=== PATIENT | female | born 1990 | race Caucasian/White ===

== ENCOUNTER 2016-09-02 06:28 | Day surgery (SDC) | payer BC ==
[~2016-09-02 06:28] MED LIST: Sodium Chloride 0.9% 10 ML Syringe FLUSH PRN; Sodium Chloride 0.9% 2.5 ML Syringe FLUSH PRN
[2016-09-02] MEDS ORDERED: Ondansetron 4 MG/2 ML SDV ONE (07:13)
[2016-09-02] MEDS ORDERED: fentaNYL 100 MCG/2 ML SDV ONE (07:13)
[2016-09-02] MEDS ORDERED: Propofol 200 MG/20 ML SDV ONE ×2 (07:13→08:03)
[2016-09-02] MEDS ORDERED: Midazolam 1 MG/ML 2 ML SDV ONE (07:14)
[2016-09-02] MEDS ORDERED: Lidocaine 1% with EPINEPHrine 1:100,000 20 ML MDV ONE (07:23)
--- NOTE | 2016-09-02 07:26 | PCM.PREANE ---
Preanesthetic Assessment - Anesthesia/Transfusion/Family Hx Anesthesia History: Prior Anesthesia Without Reaction Family History of Anesthesia Reaction: No Transfusion History: No Prior Transfusion(s) Intubation History: Unknown - Review of Systems Pulmonary: No Symptoms Cardiovascular: No Symptoms Gastrointestinal: No symptoms Neurological: No Symptoms Other: Reports: None, Depression, Anxiety - Physical Assessment O2 Sat by Pulse Oximetry: 100 Respiratory Rate: 16 Vital Signs: Last Vital Signs Temp 98.4 F 09/02/16 06:49 Pulse 62 09/02/16 06:49 Resp 16 09/02/16 06:49 BP 100/62 09/02/16 06:49 Pulse Ox 100 09/02/16 06:49 Height: 5 ft 3 in Weight: 111 lb ASA Class: 2 Mental Status: Alert & Oriented x3 Airway Class: Mallampati = 1 Dentition: Reports: Normal Dentition Thyro-Mental Finger Breadths: 3 Mouth Opening Finger Breadths: 3 ROM/Head Extension: Full Lungs: Clear to auscultation, Normal respiratory effort Cardiovascular: Regular Rate, Regular Rhythm, No Murmurs - Lab Values: Laboratory Last Values WBC 14.08 K/uL (4.0-11.0) H 09/02/16 06:51 RBC 4.56 M/uL (4.30-5.90) 09/02/16 06:51 Hgb 13.3 g/dL (12.0-16.0) 09/02/16 06:51 Hct 41.6 % (36.0-46.0) 09/02/16 06:51 MCV 91.2 fL (80.0-98.0) 09/02/16 06:51 MCH 29.2 pg (27.0-32.0) 09/02/16 06:51 MCHC 32.0 g/dL (31.0-37.0) 09/02/16 06:51 RDW Std Deviation 44.1 fl (28.0-62.0) 09/02/16 06:51 RDW Coeff of Clary 13 % (11.0-15.0) 09/02/16 06:51 Plt Count 227 K/uL (150-400) 09/02/16 06:51 MPV 11.70 fL (7.40-12.00) 09/02/16 06:51 Nucleated RBC % 0.0 /100WBC 09/02/16 06:51 Nucleated RBCs # 0 K/uL 09/02/16 06:51 HCG, Qual NEGATIVE (NEG) 09/02/16 06:51 - Allergies Allergies/Adverse Reactions: Allergies Allergy/AdvReac Type Severity Reaction Status Date / Time No Known Allergies Allergy Verified 08/27/16 14:57 - Blood Blood Available: No Product(s) Available: None - Anesthesia Plan Pre-Op Medication Ordered: None - Acknowledgements Anesthesia Type Planned: General Anesthesia (mask vs LMA; very anxious) Pt an Appropriate Candidate for the Planned Anesthesia: Yes Alternatives and Risks of Anesthesia Discussed w Pt/Guardian: Yes Pt/Guardian Understands and Agrees with Anesthesia Plan: Yes PreAnesthesia Questionnaire Psychiatric History: Reports: Anxiety, Depression - Past Surgical History Head Surgeries/Procedures: Reports: None HEENT Surgical History: Reports: Oral surgery Other HEENT Surgeries/Procedures: wisdom teeth extraction - SUBSTANCE USE Smoking Status *Q: Never Smoker Recreational Drug Use History: No - HOME MEDS Home Medications: Home Meds Naproxen Sodium [Aleve] 1 tab PO ASDIRECTED PRN 08/27/16 [History] Sertraline HCl [Zoloft] 100 mg PO DAILY 08/27/16 [History] - CURRENT (IN HOUSE) MEDS Current Meds: Current Medications Sodium Chloride (Saline Flush) 10 ml FLUSH ASDIRECTED PRN PRN Reason: Keep Vein Open Sodium Chloride (Saline Flush) 2.5 ml FLUSH ASDIRECTED PRN PRN Reason: Keep Vein Open Discontinued Medications Fentanyl (Sublimaze) Confirm Administered Dose 100 mcg .ROUTE .STK-MED ONE Stop: 09/02/16 07:14 Midazolam HCl (Versed 1 Mg/Ml) Confirm Administered Dose 2 mg .ROUTE .STK-MED ONE Stop: 09/02/16 07:15 Ondansetron HCl (Zofran) Confirm Administered Dose 4 mg .ROUTE .STK-MED ONE Stop: 09/02/16 07:14 Propofol (Diprivan 20 Ml) Confirm Administered Dose 200 mg .ROUTE .STK-MED ONE Stop: 09/02/16 07:14 Preanesthetic Assessment - ANESTHESIA/TRANSFUSION/FAMILY HX Family History of Anesthesia Reaction: No - PHYSICAL ASSESSMENT O2 Sat by Pulse Oximetry: 100 RR: 16 Vital Signs: Last Vital Signs Temp 98.4 F 09/02/16 06:49 Pulse 62 09/02/16 06:49 Resp 16 09/02/16 06:49 BP 100/62 09/02/16 06:49 Pulse Ox 100 09/02/16 06:49 Height: 5 ft 3 in Weight: 111 lb - LAB Values: Laboratory Last Values WBC 14.08 K/uL (4.0-11.0) H 09/02/16 06:51 RBC 4.56 M/uL (4.30-5.90) 09/02/16 06:51 Hgb 13.3 g/dL (12.0-16.0) 09/02/16 06:51 Hct 41.6 % (36.0-46.0) 09/02/16 06:51 MCV 91.2 fL (80.0-98.0) 09/02/16 06:51 MCH 29.2 pg (27.0-32.0) 09/02/16 06:51 MCHC 32.0 g/dL (31.0-37.0) 09/02/16 06:51 RDW Std Deviation 44.1 fl (28.0-62.0) 09/02/16 06:51 RDW Coeff of Clary 13 % (11.0-15.0) 09/02/16 06:51 Plt Count 227 K/uL (150-400) 09/02/16 06:51 MPV 11.70 fL (7.40-12.00) 09/02/16 06:51 Nucleated RBC % 0.0 /100WBC 09/02/16 06:51 Nucleated RBCs # 0 K/uL 09/02/16 06:51 HCG, Qual NEGATIVE (NEG) 09/02/16 06:51 - ALLERGIES Allergies/Adverse Reactions: Allergies Allergy/AdvReac Type Severity Reaction Status Date / Time No Known Allergies Allergy Verified 08/27/16 14:57
[2016-09-02] MEDS ORDERED: Ketorolac 30 MG/ML SDV ONE (08:18)
--- NOTE | 2016-09-02 08:30 | PCM.OPNOTE ---
- General Post-Op/Procedure Note Date of Surgery/Procedure: 09/02/16 Operative Procedure(s): LEEP of cervix Pre Op Diagnosis: MANJU II Post-Op Diagnosis: Same Anesthesia Technique: Local, MAC Primary Surgeon: Brittany Narvaez Pathology: Cervix, endocervical hat, ECC Fluid Replacement, Intraop: 1,100 EBL in mLs: 10 Complications: none known Condition: Good Free Text/Narrative:: Dictation [id number]
--- NOTE | 2016-09-02 08:49 | PCM.POSTAN ---
POST ANESTHESIA ASSESSMENT - MENTAL STATUS Mental Status: alert, oriented - RESPIRATORY Respiratory Status: respiratory rate WNL, airway patent, O2 saturation stable - CARDIOVASCULAR CV Status: pulse rate WNL, blood pressure stable - GASTROINTESTINAL GI Status: no symptoms - PAIN Pain Score: 0 - POST OP HYDRATION Hydration Status: adequate & stable
[2016-09-02 08:59] VITALS: BP 119/42
--- NOTE | 2016-09-02 09:09 | PCM48HPAN ---
Post Anesthesia Note - EVALUATION WITHIN 48HRS OF ANESTHETIC Vital Signs in Normal Range: Yes Patient Participated in Evaluation: Yes Respiratory Function Stable: Yes Airway Patent: Yes Cardiovascular Function Stable: Yes Hydration Status Stable: Yes Pain Control Satisfactory: Yes Nausea and Vomiting Control Satisfactory: Yes Mental Status Recovered: Yes - COMMENTS/OBSERVATIONS Free Text/Narrative:: Pt currently denies any pain or nausea. Pt states she is ready to go home. No apparent anesthesia complications.
--- NOTE | 2016-09-02 15:36 | OR ---
SURGEON: Brittany Narvaez M.D. DATE OF PROCEDURE: 09/02/2016 PREOPERATIVE DIAGNOSIS: MANJU-2. POSTOP DIAGNOSIS: MANJU-2. PROCEDURE: LEEP of cervix. ANESTHESIA: IV sedation with local. ESTIMATED BLOOD LOSS: Less than 10 mL. FLUIDS: 1100 mL crystalloid. DISPOSITION: The patient to PACU, stable. PROCEDURE DETAILS: Jessie is a 26-year-old female, who has had recent colposcopy biopsy for abnormal Pap smear, which revealed a MANJU-2. Therefore, we have discussed options with her, and we are opting to proceed with LEEP for further treatment and diagnostic measures. Risks of the procedure have been discussed with her and proper consent obtained. DESCRIPTION OF PROCEDURE: The patient was taken to the operating room, where she underwent IV sedation and was placed in modified dorsal lithotomy position and was prepped and draped in the usual fashion. A time-out was performed. A coated speculum was now introduced into the vagina. Cervix was able to be visualized. The cervix was prepped with Lugol's, and the cervix was locally injected with 1% lidocaine with epinephrine. Please see a total of 10 mL was utilized. Using a 20 x 8 mm endocervical loop, a single pass excision was performed incorporating both the anterior and posterior lip of the cervix. There was a segment of the left side that was not completely excised and then this was further excised with the loop. A 5 mm endocervical hat was now excised followed by endocervical curettings. The wound bed was now cauterized with rollerball, and Monsel's was gently placed. Hemostasis was evident. The patient has tolerated the procedure well overall. Instrument and sponge count was correct. All instruments removed from the vagina. The patient tolerated the procedure well. She will go to PACU in stable condition. Specimens to pathology. ALECIA / TYRELL /[id number]
== END 2016-09-02 09:15 | disposition home or self-care (01) ==
LOC: MW.SDS 06:28
PROVIDERS: ATTEND Obstetrics & Gynecology
DX: N87.1 Moderate cervical dysplasia (principal)
CPT/HCPCS: 36415; 57522; 84703; 85027; 88305; 88307; J1885; J2250; J2405; J3010; 00940; J2704

== ENCOUNTER 2017-04-05 02:55 | Observation (INO) | payer OTHER ==
[2017-04-05] MEDS ORDERED: Sodium Chloride 0.9% 10 ML Syringe FLUSH PRN (04:06)
[2017-04-05] MEDS ORDERED: Sodium Chloride 0.9% 2.5 ML Syringe FLUSH PRN (04:06)
[2017-04-05] MEDS ORDERED: Lactated Ringers 1,000 ML IV SCH (04:15)
[2017-04-05] MEDS: Lactated Ringers 1,000 ML IV SCH ×2 (06:22→23:37)
[2017-04-05] MEDS ORDERED: Ampicillin 2 GM in Sodium Chloride 0.9% 100 ML IV ONE (07:14)
[2017-04-05] MEDS ORDERED: Docusate Sodium 100 MG Cap PO PRN (07:17)
[2017-04-05] MEDS ORDERED: Acetaminophen 325 MG Tab PO PRN (07:17)
[2017-04-05] MEDS ORDERED: hydrOXYzine Pamoate 25 MG Cap PO PRN (07:19)
[2017-04-05 07:31] LABS: CHLORIDE,CL 106 mmol/L (98-110); SODIUM,NA 137 mmol/L (136-146)
[2017-04-05] MEDS: Prenatal Multivitamin and Multimineral with Iron Tab PO SCH (08:28)
--- NOTE | 2017-04-05 11:08 | HP ---
DATE OF : 1990 PRIMARY CARE PHYSICIAN: None PCP CHIEF COMPLAINT: Vaginal bleeding in . HISTORY: This is a 27-year-old female. She is G1, P0. She presents at 27 and 5/7th weeks' gestation with an episode of vaginal bleeding, bright red approximately 4- 5 cm area of a mini pad after she was lifting a large garbage bag into the dumpster at work. She has had uncomplicated care. She does feel tightening, but no ongoing abdominal or back pain. She has noted a decreased appetite and reports stress during the . She reports positive movement. No abnormal discharge or vaginal odor. She has previously had an uncomplicated , but does have a history of LEEP with normal cervical length. PAST MEDICAL HISTORY: Significant for anxiety. PAST SURGICAL HISTORY: Breast augmentation in 2010. LEEP in August of 2016. SOCIAL HISTORY: She denies use of tobacco, alcohol, or street drugs. She is single. She has had no recent intercourse. FAMILY HISTORY: Negative for chronic illness. ALLERGIES: None known. MEDICATIONS: Tylenol as needed. vitamins and calcium. REVIEW OF SYSTEMS: GENERAL: Negative for headache or visual changes. Negative for rash. CARDIAC: Negative for cardiac symptoms. PULMONARY: Negative for pulmonary symptoms. MUSCULOSKELETAL: Negative for musculoskeletal symptoms. GI: Negative for GI symptoms. DERMATOLOGIC: Negative for dermatologic symptoms. : As per HPI. NEUROLOGIC: Negative for neurologic symptoms. PHYSICAL EXAMINATION: VITAL SIGNS: Blood pressure is 100/58, pulse is 84, temperature is 98.6, heart tones 140s with moderate variabilities. Accelerations are present. There are no decelerations. Contractions are every 3-10 minutes and mild. GENERAL: She is alert, oriented, in no acute distress. NECK: Supple without lymphadenopathy or thyromegaly. LUNGS: Clear bilaterally. CV: Regular rate without murmur. ABDOMEN: Soft, gravid, nontender. Appropriate for gestational age. Fundus is nontender. EXTREMITIES: Show trace edema. NEUROLOGIC: CVA is nontender. Sterile speculum exam shows a small amount of dark red mucousy discharge. Vaginal exam is closed, soft, mid position. Ultrasound cervical length is 3.1 cm. FRANCIS is 12.4, estimated weight of 1054 g which is 23rd percentile for gestational age. Abdomen is at the 12th percentile for gestational age. LABORATORY STUDIES: Include hemoglobin 11.1, platelet count of 200,000, white blood cell count of 15.6. She is blood type O positive. Coagulation studies are pending as is a firm Gen-Probe and group B strep culture. fibronectin was not obtained due to vaginal bleeding and vaginal ultrasound. ASSESSMENT AND PLAN: A 27 and 5/7th week intrauterine with contractions after an episode of bleeding. Etiology may be labor versus abruption versus other. Currently, status is reassuring. PLAN: To admit for observation with continuous monitoring. We will review abruption labs. Continue with hydration. Start group B strep prophylaxis with ampicillin after group B strep culture was obtained and begin steroids. If there is any cervical change, if abruption labs appear abnormal or if there is persistent bleeding, we will transfer her to a facility capable of caring for a 27-week . HIREN SANTILLAN /[id number]
[2017-04-05] MEDS: Betamethasone Acetate/Betamethasone Sod Phosphate 30 MG/5 ML MDV IM SCH (12:09)
[2017-04-05] MEDS: Ampicillin 1 GM in Sodium Chloride 0.9% 50 ML IV SCH ×3 (12:11→23:37)
[2017-04-06] MEDS ORDERED: Ampicillin 1 GM AdvVial IV ONE (05:28)
[2017-04-06] MEDS ORDERED: Sodium Chloride 0.9% 50 ML ONE (05:35)
[2017-04-06] MEDS: Ampicillin 1 GM in Sodium Chloride 0.9% 50 ML IV SCH ×2 (05:38→11:51)
[2017-04-06] MEDS: Prenatal Multivitamin and Multimineral with Iron Tab PO SCH (09:20)
[2017-04-06] MEDS: Betamethasone Acetate/Betamethasone Sod Phosphate 30 MG/5 ML MDV IM SCH (12:05)
--- NOTE | 2017-04-07 10:46 | US ---
EXAM DATE: 04/05/17 PATIENT'S AGE: 27 Patient: FREDO DEAN Facility: [place], [place] Site . Site : 1990 Study: US OB Pelvis [id number] 5:18:23 AM Ordering Physician: Brice Soto Final Report: INDICATION: Bleeding. Check placenta and cervical length. TECHNIQUE: Transabdominal and transvaginal OB pelvic ultrasound. COMPARISON: None. FINDINGS: Single living intrauterine in vertex presentation. heart rate is 133 beats per minute. The posterior fundal placenta is otherwise unremarkable in appearance. Amniotic fluid is within normal limits. The clothes cervical length is 3.1 cm. Estimated gestational age is 28 weeks 0 days. Estimated weight is 1054 grams, at the 23rd percentile. Biparietal diameter is 7.1 cm corresponding to 28 weeks 5 days. Head circumference is 26.1 cm corresponding to 28 weeks 3 days. Abdominal circumference is 22.1 cm corresponding to 26 weeks 4 days. Femur length is 5.2 cm corresponding to 28 weeks 0 days. IMPRESSION: Single living intrauterine with estimated age of 28 weeks 0 days. No complicating features evident. Dictated by Fercho Castle MD @ 04/05/2017 5:38:26 AM Dictated by: Fercho Castle MD @ 04/05/2017 05:38:50 (Electronic Signature) Report Signed by Proxy. BERTO
--- NOTE | 2017-04-07 10:47 | US ---
EXAM DATE: 04/05/17 PATIENT'S AGE: 27 Patient: FREDO DEAN Facility: [place], [place] Site . Site : 1990 Study: US OB Pelvis [id number] 5:18:23 AM Ordering Physician: Brice Soto Final Report: INDICATION: Bleeding. Check placenta and cervical length. TECHNIQUE: Transabdominal and transvaginal OB pelvic ultrasound. COMPARISON: None. FINDINGS: Single living intrauterine in vertex presentation. heart rate is 133 beats per minute. The posterior fundal placenta is otherwise unremarkable in appearance. Amniotic fluid is within normal limits. The clothes cervical length is 3.1 cm. Estimated gestational age is 28 weeks 0 days. Estimated weight is 1054 grams, at the 23rd percentile. Biparietal diameter is 7.1 cm corresponding to 28 weeks 5 days. Head circumference is 26.1 cm corresponding to 28 weeks 3 days. Abdominal circumference is 22.1 cm corresponding to 26 weeks 4 days. Femur length is 5.2 cm corresponding to 28 weeks 0 days. IMPRESSION: Single living intrauterine with estimated age of 28 weeks 0 days. No complicating features evident. Dictated by Fercho Castle MD @ 04/05/2017 5:38:26 AM Dictated by: Fercho Castle MD @ 04/05/2017 05:38:50 (Electronic Signature) Report Signed by Proxy. BERTO
== END 2017-04-06 12:35 | disposition home or self-care (01) ==
LOC: MW.OBCHECK 02:55 → MW.OB 02:58 → MW.OBCHECK 03:22 → MW.OB 16:29
PROVIDERS: ADMIT Obstetrics & Gynecology; ATTEND Obstetrics & Gynecology
DX: O46.92 Antepartum hemorrhage, unspecified, second trimester (principal); O99.342 Other mental disorders complicating pregnancy, second trimester; F41.9 Anxiety disorder, unspecified; Z3A.27 27 weeks gestation of pregnancy; Z98.890 Other specified postprocedural states
CPT/HCPCS: 36415; 59025; 76815; 76817; 80053; 81003; 85027; 85384; 85610; 86850; 86900; 86901; 87081; 87480; 87491; 87510; 87591; 87660; A9270; J0290; J7030; J7050; J7120; 96361; 96365; 96366; 96375; 96376; G0378

== ENCOUNTER 2017-05-26 15:33 | Inpatient (IN) | payer BC, OTHER ==
[2017-05-26] MEDS ORDERED: Butorphanol 1 MG/ML SDV IVPUSH ONE (16:33)
[2017-05-26] MEDS: Lactated Ringers 1,000 ML IV ONE (16:44)
[2017-05-26] MEDS ORDERED: Ampicillin 2 GM in Sodium Chloride 0.9% 100 ML IV ONE (17:00)
[2017-05-26] MEDS ORDERED: Sodium Chloride 0.9% 10 ML Syringe FLUSH PRN (18:00)
[2017-05-26] MEDS ORDERED: Methylergonovine 0.2 MG/1 ML Amp IM PRN (18:00)
[2017-05-26] MEDS ORDERED: Terbutaline 1 MG/ML SDV SUBCUT PRN (18:00)
[2017-05-26] MEDS ORDERED: Nalbuphine 10 MG/1 ML Vial IVPUSH PRN (18:00)
[2017-05-26] MEDS ORDERED: Oxytocin/0.9 % Sodium Chloride 30 UNIT/500 ML BAG IV SCH ×2 (18:00)
[2017-05-26] MEDS ORDERED: Sodium Chloride 0.9% 2.5 ML Syringe FLUSH PRN (18:00)
[2017-05-26] MEDS ORDERED: Lactated Ringers 1,000 ML IV SCH (18:00)
[2017-05-26] MEDS ORDERED: Misoprostol 200 MCG Tab PO PRN (18:00)
[2017-05-26] MEDS ORDERED: Lidocaine 1% 50 ML MDV INJECT PRN (18:00)
[2017-05-26] MEDS ORDERED: Water For Irrigation,Sterile 1,000 ML Container IRR PRN (18:00)
[2017-05-26] MEDS ORDERED: Carboprost Tromethamine 250 MCG/1 ML Amp IM PRN (18:00)
[2017-05-26] MEDS: Butorphanol 1 MG/ML SDV IVPUSH PRN ×2 (18:43→20:38)
[2017-05-26] MEDS: Ampicillin 1 GM in Sodium Chloride 0.9% 50 ML IV SCH (20:41)
[2017-05-27] MEDS: Butorphanol 1 MG/ML SDV IVPUSH PRN (00:40)
[2017-05-27] MEDS: Ampicillin 1 GM in Sodium Chloride 0.9% 50 ML IV SCH ×4 (00:50→18:22)
[2017-05-27] MEDS ORDERED: Acetaminophen 500 MG Tab PO ONE (01:09)
[2017-05-27] MEDS ORDERED: Clindamycin Phosphate in D5W 50 ML ONE (01:31)
[2017-05-27] MEDS: Lactated Ringers 1,000 ML IV ONE (01:44)
[2017-05-27] MEDS ORDERED: Clindamycin Phosphate in D5W 50 ML IV ONE (01:45)
[2017-05-27] MEDS ORDERED: fentaNYL 100 MCG/2 ML SDV ONE (02:00)
[2017-05-27] MEDS ORDERED: Ropivacaine 0.2% 2 MG/ML 20 ML SDV ONE (02:01)
[2017-05-27] MEDS ORDERED: Ropivacaine 100 ML ONE (02:01)
--- NOTE | 2017-05-27 02:46 | PCM.PRNOTE ---
- Free Text/Narrative Note: called to place epidural for increasing labor pain. Pt identified and procedure explained. risks reviewed including bleeding, infection, nerve pain, nerve damage, and unsuccessful epidural. pt agrees both verbally and written consent. sitting up, sterile betadine prep times three with sterile drape. 1% lidocaine given SQ at L3. #17 touhy, STEPAN saline, STEPAN easily found at 5 cm. no heme, no paresthesia. catheter placed easily, taped at 12 cm at skin.test dose 3 ml 1.5 % lidocaine with epinephrine 1:200,000. negative reaction. epidural bolus with Patient HOB at 30 degrees, ERICA. bolus of 7 ml 0.2% ropivicaine and 100 mcg fentanyl given in divided doses over 20 minutes. Pt feeling relief with contractions, pain now 0/10. epidural infusion running at 8ml/hr with fentanyl 2 mcg/ml. PCEA bolus available 8 ml/10 min with hourly limit of 30 ml's. Educated on use of PCEA. vital signs remain stable, FHR stable
--- NOTE | 2017-05-27 02:48 | PCM.PREANE ---
Preanesthetic Assessment - Procedure Proposed Procedure: labor epidural - Anesthesia/Transfusion/Family Hx Anesthesia History: Prior Anesthesia Without Reaction (leep) Family History of Anesthesia Reaction: No Transfusion History: No Prior Transfusion(s) Intubation History: Unknown - Review of Systems General: No Symptoms Pulmonary: No Symptoms Cardiovascular: No Symptoms Gastrointestinal: No Symptoms Neurological: No Symptoms Other: Reports: None - Physical Assessment NPO Status Date: 05/27/17 NPO Status Time: 02:47 (clear liquids) Temperature: 38.3 C Vital Signs: Last Vital Signs Temp 38.3 C H 05/27/17 01:40 Pulse Resp BP Pulse Ox Height: 1.6 m Weight: 62.142 kg ASA Class: 2 Mental Status: Alert & Oriented x3 Airway Class: Mallampati = 2 Dentition: Reports: Normal Dentition Thyro-Mental Finger Breadths: 3 Mouth Opening Finger Breadths: 3 ROM/Head Extension: Full Lungs: Clear to Auscultation, Normal Respiratory Effort Cardiovascular: Regular Rate, Regular Rhythm - Lab Values: Laboratory Last Values WBC 29.43 K/uL (4.0-11.0) H 05/26/17 16:42 RBC 4.51 M/uL (4.30-5.90) 05/26/17 16:42 Hgb 13.6 g/dL (12.0-16.0) 05/26/17 16:42 Hct 40.4 % (36.0-46.0) 05/26/17 16:42 MCV 89.6 fL (80.0-98.0) 05/26/17 16:42 MCH 30.2 pg (27.0-32.0) 05/26/17 16:42 MCHC 33.7 g/dL (31.0-37.0) 05/26/17 16:42 RDW Std Deviation 47.7 fl (28.0-62.0) 05/26/17 16:42 RDW Coeff of Clary 15 % (11.0-15.0) 05/26/17 16:42 Plt Count 194 K/uL (150-400) 05/26/17 16:42 MPV 11.40 fL (7.40-12.00) 05/26/17 16:42 Neut % (Auto) Not Reportable 05/26/17 16:42 Lymph % (Auto) Not Reportable 05/26/17 16:42 [place] % (Auto) Not Reportable 05/26/17 16:42 Eos % (Auto) Not Reportable 05/26/17 16:42 Baso % (Auto) Not Reportable 05/26/17 16:42 Neut # (Auto) Not Reportable 05/26/17 16:42 Lymph # (Auto) Not Reportable 05/26/17 16:42 [place] # (Auto) Not Reportable 05/26/17 16:42 Eos # (Auto) Not Reportable 05/26/17 16:42 Baso # (Auto) Not Reportable 05/26/17 16:42 Add Manual Diff YES 05/26/17 16:42 Neutrophils % (Manual) 81 % (48.0-80.0) H 05/26/17 16:42 Band Neutrophils % 13 % 05/26/17 16:42 Lymphocytes % (Manual) 3 % (16.0-40.0) L 05/26/17 16:42 Monocytes % (Manual) 3 % (0.0-15.0) 05/26/17 16:42 Nucleated RBC % 0.0 /100WBC 05/26/17 16:42 Absolute Seg Neuts 23.8 (1.4-5.7) H 05/26/17 16:42 Band Neutrophils # 3.8 05/26/17 16:42 Lymphocytes # (Manual) 0.9 (0.6-2.4) 05/26/17 16:42 Monocytes # (Manual) 0.9 (0.0-0.8) H 05/26/17 16:42 Nucleated RBCs # 0 K/uL 05/26/17 16:42 Membrane Rupture POSITIVE 05/26/17 16:00 Blood Type O POSITIVE 05/26/17 16:42 Antibody Screen NEGATIVE 05/26/17 16:42 - Allergies Allergies/Adverse Reactions: Allergies Allergy/AdvReac Type Severity Reaction Status Date / Time No Known Allergies Allergy Verified 05/26/17 16:07 - Blood Blood Available: Yes Product(s) Available: PRBC - Anesthesia Plan Pre-Op Medication Ordered: None - Acknowledgements Anesthesia Type Planned: Epidural Pt an Appropriate Candidate for the Planned Anesthesia: Yes Alternatives and Risks of Anesthesia Discussed w Pt/Guardian: Yes Pt/Guardian Understands and Agrees with Anesthesia Plan: Yes PreAnesthesia Questionnaire HEENT History: Reports: None Genitourinary History: Reports: None 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: Psychiatric History: Reports: Anxiety, Depression - Past Surgical History HEENT Surgical History: Reports: Oral Surgery Female Surgical History: Reports: Breast Implant, LEEP - SUBSTANCE USE Smoking Status *Q: Never Smoker Recreational Drug Use History: No - HOME MEDS Home Medications: Home Meds PNV95/Ferrous Fumarate/FA [ Tablet] 04/05/17 [History] Acetaminophen [Tylenol Extra Strength] 1,000 mg PO PRN 05/26/17 [History] - CURRENT (IN HOUSE) MEDS Current Meds: Current Medications Butorphanol Tartrate (Stadol) 1 mg IVPUSH Q1H PRN PRN Reason: Pain Last Admin: 05/27/17 00:40 Dose: 1 mg Carboprost Tromethamine (Hemabate Ds) 250 mcg IM ASDIRECTED PRN PRN Reason: Post Hemorrhage Ampicillin Sodium 1 gm/ Sodium (Chloride) 50 mls @ 100 mls/hr IV Q4H HERBIE Last Admin: 05/27/17 00:50 Dose: 100 mls/hr Lactated Ringer's (Ringers, Lactated) 1,000 mls @ 150 mls/hr IV ASDIRECTED HERBIE Last Admin: 05/27/17 02:32 Dose: 150 mls/hr Oxytocin/Sodium Chloride (Oxytocin 30 Unit/500 Ml-Ns) 30 unit in 500 mls @ 999 mls/hr IV TITRATE HERBIE Oxytocin/Sodium Chloride (Oxytocin 30 Unit/500 Ml-Ns) 30 unit in 500 mls @ 2 mls/hr IV TITRATE HERBIE; 2 MUNITS/MIN PRN Reason: Protocol Last Titration: 05/27/17 00:52 Dose: 16 munits/min, 16 mls/hr Gentamicin Sulfate 120 mg/ (Sodium Chloride) 103 mls @ 194.34 mls/hr IV Q8H HERBIE Clindamycin Phosphate (Cleocin In D5w) 50 mls @ 200 mls/hr IV Q6H HERBIE Lidocaine HCl (Xylocaine 1%) 50 ml INJECT .ONCE PRN PRN Reason: Laceration repair Methylergonovine Maleate (Methergine) 0.2 mg IM ASDIRECTED PRN PRN Reason: Post Hemorrhage Misoprostol (Cytotec) 200 mcg PO .ONCE PRN PRN Reason: Post Hemorrhage Nalbuphine HCl (Nubain) 10 mg IVPUSH Q1H PRN PRN Reason: Pain (severe 7-10) Sodium Chloride (Saline Flush) 10 ml FLUSH ASDIRECTED PRN PRN Reason: Keep Vein Open Sodium Chloride (Saline Flush) 2.5 ml FLUSH ASDIRECTED PRN PRN Reason: Keep Vein Open Sterile Water (Sterile Water For Irrigation) 1,000 ml IRR ASDIRECTED PRN PRN Reason: delivery Terbutaline Sulfate (Brethine) 0.25 mg SUBCUT ASDIRECTED PRN PRN Reason: Tacysystole Discontinued Medications Acetaminophen (Tylenol Extra Strength) 1,000 mg PO ONETIME ONE Stop: 05/27/17 01:10 Last Admin: 05/27/17 01:40 Dose: 1,000 mg Butorphanol Tartrate (Stadol) 1 mg IVPUSH ONETIME ONE Stop: 05/26/17 16:34 Last Admin: 05/26/17 16:52 Dose: 1 mg Fentanyl (Sublimaze) Confirm Administered Dose 300 mcg .ROUTE .STK-MED ONE Stop: 05/27/17 02:01 Ampicillin Sodium 2 gm/ Sodium (Chloride) 100 mls @ 200 mls/hr IV ONETIME ONE Stop: 05/26/17 17:29 Last Admin: 05/26/17 16:57 Dose: 200 mls/hr Lactated Ringer's (Ringers, Lactated) 1,000 mls @ 999 mls/hr IV ONETIME ONE Stop: 05/26/17 17:37 Last Admin: 05/27/17 01:44 Dose: 999 mls/hr Clindamycin Phosphate 600 mg/ (Sodium Chloride) 54 mls @ 100 mls/hr IV ONETIME ONE Stop: 05/27/17 01:41 Gentamicin Sulfate 120 mg/ (Sodium Chloride) 103 mls @ 194.34 mls/hr IV ONETIME ONE Stop: 05/27/17 01:40 Last Admin: 05/27/17 01:43 Dose: 194.34 mls/hr Clindamycin Phosphate (Cleocin In D5w) Confirm Administered Dose 50 mls @ as directed .ROUTE .STK-MED ONE Stop: 05/27/17 01:32 Clindamycin Phosphate (Cleocin In D5w) 50 mls @ 200 mls/hr IV ONETIME ONE Stop: 05/27/17 01:59 Last Admin: 05/27/17 01:42 Dose: 200 mls/hr Ropivacaine (Naropin 0.2%) Confirm Administered Dose 100 mls @ as directed .ROUTE .[facility]-MED ONE Stop: 05/27/17 02:02 Clindamycin Phosphate 600 mg/ (Sodium Chloride) 54 mls @ 100 mls/hr IV Q6H HERBIE Ropivacaine (Naropin 0.2%) Confirm Administered Dose 20 ml .ROUTE .ST-MED ONE Stop: 05/27/17 02:02
[2017-05-27] MEDS ORDERED: Acetaminophen 500 MG Tab PO PRN (07:37)
[2017-05-27] MEDS ORDERED: Ibuprofen 400 MG Tab PO PRN (07:37)
[2017-05-27] MEDS ORDERED: Witch Hazel Medicated Pads 40/Jar TOP PRN (07:37)
[2017-05-27] MEDS ORDERED: Docusate Sodium 100 MG Cap PO PRN (07:37)
[2017-05-27] MEDS ORDERED: Bisacodyl 10 MG Supp RECTAL PRN (07:37)
[2017-05-27] MEDS ORDERED: Benzocaine/Menthol 20%-0.5% Spray 78 GM Cannister TOP PRN (07:37)
[2017-05-27] MEDS ORDERED: Lanolin 100% Cream 7 GM Tube TOP PRN (07:37)
[2017-05-27] MEDS: Clindamycin Phosphate in D5W 50 ML IV SCH ×3 (08:43→20:41)
--- NOTE | 2017-05-27 09:06 | PCM48HPAN ---
Post Anesthesia Note - EVALUATION WITHIN 48HRS OF ANESTHETIC Vital Signs in Normal Range: Yes Patient Participated in Evaluation: Yes Respiratory Function Stable: Yes Airway Patent: Yes Cardiovascular Function Stable: Yes Hydration Status Stable: Yes Pain Control Satisfactory: Yes Nausea and Vomiting Control Satisfactory: Yes Mental Status Recovered: Yes
[2017-05-27] MEDS: DEXTROSE 5% IV SCH ×4 (10:43→19:50)
[2017-05-27] MEDS: WATER IV SCH ×4 (10:43→19:50)
[2017-05-27] MEDS: GENTAMICIN IV SCH ×4 (10:43→19:50)
[2017-05-27] MEDS: Acetaminophen 500 MG Tab PO PRN ×2 (10:51→14:58)
[2017-05-27] MEDS: Ibuprofen 800 MG Tab PO PRN (10:51)
--- NOTE | 2017-05-27 12:23 | OR ---
SURGEON: Alejandra Sanches MD DATE OF PROCEDURE: 05/27/2017 PREOPERATIVE DIAGNOSES: 1. Intrauterine at 35 weeks and 1 day. 2. Prolonged premature rupture of membranes. 3. Spontaneous labor 4. Suspected chorioamnionitis. 5. GBS positive. POSTOPERATIVE DIAGNOSES: 1. Intrauterine at 35 weeks and 1 day. 2. Prolonged premature rupture of membranes. 3. Spontaneous labor 4. Suspected chorioamnionitis. 5. GBS positive. 6. Delivered. PROCEDURE: Spontaneous vaginal delivery. ANESTHESIA: Epidural. ESTIMATED BLOOD LOSS: 200 mL. COMPLICATIONS: None. DISPOSITION: Mother and baby in Labor and Delivery room, bonding. FINDINGS: Female infant, weight 2130 g, score 8 and 9 at 1 and 5 minutes respectively. Grossly normal placenta with 3-vessel cord. Intact perineum. BRIEF HISTORY: Jessie is a 27-year-old, G2, P0-0-1-0, who presented on the May at 1530 hours at 35 weeks gestation with a history of leakage of watery whitish fluid for about a week. She said the leakage was enough for her to wear a panty liner and 3 days ago she noticed a greenish tinge to it, which had resolved spontaneously and the fluid continued to be clear, not foul smelling. She presented for evaluation due to worsening abdominal cramps that started about 24 hours ago. She denied vaginal bleeding and reported movement. No fever or chills. On admission, she was confirmed to have ruptured membranes with scanty amount of slightly blood-tinged amniotic fluid noticed with positive Amisure.She was 3 cm dilated, 80%- 90% effaced, at station -2. Irregular contractions. She was afebrile and showed no clinical signs of an infection, but her WBC was elevated at 29 with increased band forms of neutrophils. She had received a course of steroids on a prior admission at 27 weeks for vaginal bleeding and threatened labor. GBS culture collected at that time was positive. She was admitted, received Ampicillin, after discussing with the civil lawyer on -call, Dr. Muller, we made a decision to keep her Hibbs for delivery. Oxytocin was commenced for augmentation of and received epidural for pain management. She had a fever of 100.9 and Gentamicin with Clindamycin was added to the antibiotics regimen. When I reexamined her more than 6 hours after admission on 16 milliunits of oxytocin. She had made change to 4 cm, 90% effaced, station -1, the cervix had scar tissue ring around it (history of LEEP less than 12 months ago) with palpable forebag. AROM was performed, copious amount slightly blood-tinged amniotic fluid. Oxytocin continued to be titrated upwards and she became fully dilated 4 hours later. heart tracing fluctuated between a Category 1 and 2 and having baseline of between 110-120, intermittent episodes of minimal variability, with appropriate response to scalp stimulation. She pushed quite well, brought the baby's head down to a +4 station with four contractions and was set up for delivery modified dorsal lithotomy position. DESCRIPTION OF PROCEDURE: She had a spontaneous vaginal delivery of a live female infant in left occipital anterior position, no nuchal cord, clear amniotic fluid, nonfoul smelling at delivery. Anterior and posterior shoulders and the rest of the baby were delivered without difficulty. Baby was vigorous and cried spontaneously at . The baby was delivered onto the maternal abdomen with the consent of Dr. Muller, civil lawyer on-call. Delayed cord clamping was performed and the cord was subsequently cut by the father of the baby. With delivery of the infant, oxytocin infusion titration was commenced for active management of third stage of labor. Cord blood and gas samples were obtained. Placenta was delivered by controlled cord traction, appeared to be complete and intact with an accessory lobe. Uterine massage was performed. Uterus was found to be well contracted below the umbilicus. Examination of the perineum revealed no laceration. The patient tolerated the procedure well. Sponge, instrument, and needle counts were correct at the end of the delivery. Triple antibiotics will be continued for 24 hours with repeat CBC. ADUMVIV / MODL /[id number] BERTO
[2017-05-28] MEDS: Ampicillin 1 GM in Sodium Chloride 0.9% 50 ML IV SCH ×2 (00:02→05:59)
[2017-05-28] MEDS: Clindamycin Phosphate in D5W 50 ML IV SCH ×2 (03:00→09:03)
[2017-05-28] MEDS: WATER IV SCH ×2 (03:50)
[2017-05-28] MEDS: DEXTROSE 5% IV SCH ×2 (03:50)
[2017-05-28] MEDS: GENTAMICIN IV SCH ×2 (03:50)
[2017-05-28] MEDS: Ibuprofen 800 MG Tab PO PRN ×3 (07:50→20:18)
--- NOTE | 2017-05-28 08:58 | PCM.PNPP ---
- General Info Date of Service: 05/28/17 Functional Status: Reports: Pain Controlled, Tolerating Diet, Ambulating, Urinating - Review of Systems General: Reports: Fatigue. Denies: Fever, Weakness Pulmonary: Denies: Shortness of Breath Cardiovascular: Denies: Chest Pain, Palpitations, Lightheadedness Gastrointestinal: Denies: Nausea, Vomiting Genitourinary: Denies: Flank Pain Psychiatric: Reports: No Symptoms - Patient Data Vital Signs - Most Recent: Last Vital Signs Temp 36.8 C 05/28/17 05:30 Pulse 87 05/28/17 05:30 Resp 16 05/28/17 05:30 BP 92/52 L 05/28/17 05:30 Pulse Ox 97 05/28/17 05:30 Weight - Most Recent: 62.142 kg I&O - Last 24 Hours: Intake & Output 05/27/17 05/28/17 05/28/17 22:59 06:59 14:59 Intake Total 153 203 Balance 153 203 Lab Results - Last 24 Hours: Laboratory Results - last 24 hr 05/28/17 Range/Units 06:54 WBC 25.42 H (4.0-11.0) K/uL RBC 2.78 L (4.30-5.90) M/uL Hgb 8.5 L (12.0-16.0) g/dL Hct 25.0 L (36.0-46.0) % MCV 89.9 (80.0-98.0) fL MCH 30.6 (27.0-32.0) pg MCHC 34.0 (31.0-37.0) g/dL RDW Std Deviation 48.7 (28.0-62.0) fl RDW Coeff of Clary 15 (11.0-15.0) % Plt Count 176 (150-400) K/uL MPV 10.80 (7.40-12.00) fL Add Manual Diff YES Neutrophils % (Manual) 77 (48.0-80.0) % Band Neutrophils % 15 % Lymphocytes % (Manual) 7 L (16.0-40.0) % Monocytes % (Manual) 1 (0.0-15.0) % Nucleated RBC % 0.0 /100WBC Absolute Seg Neuts 19.6 H (1.4-5.7) Band Neutrophils # 3.8 Lymphocytes # (Manual) 1.8 (0.6-2.4) Monocytes # (Manual) 0.3 (0.0-0.8) Nucleated RBCs # 0 K/uL Med Orders - Current: Current Medications Acetaminophen (Tylenol Extra Strength) 500 mg PO Q4H PRN PRN Reason: Pain Acetaminophen (Tylenol Extra Strength) 1,000 mg PO Q4H PRN PRN Reason: Pain Last Admin: 05/27/17 14:58 Dose: 1,000 mg Benzocaine/Menthol (Dermoplast Pain Relief 20%-0.5% [place]) 78 gm TOP ASDIRECTED PRN PRN Reason: Perineal Comfort Measure Bisacodyl (Dulcolax) 10 mg RECTAL .ONCE PRN PRN Reason: Constipation Docusate Sodium (Colace) 100 mg PO BID PRN PRN Reason: Constipation Emollient Ointment (Lansinoh Hpa) 0 gm TOP ASDIRECTED PRN PRN Reason: Sore Nipples Clindamycin Phosphate (Cleocin In D5w) 50 mls @ 200 mls/hr IV Q6H [facility] Last Admin: 05/28/17 03:00 Dose: 200 mls/hr Gentamicin Sulfate 120 mg/ (Dextrose/Water) 103 mls @ 206 mls/hr IV Q8H [facility] Last Admin: 05/28/17 03:50 Dose: 206 mls/hr Ampicillin Sodium 1 gm/ Sodium (Chloride) 50 mls @ 100 mls/hr IV Q6H [facility] Last Admin: 05/28/17 05:59 Dose: 100 mls/hr Ibuprofen (Motrin) 400 mg PO Q4H PRN PRN Reason: Pain Ibuprofen (Motrin) 800 mg PO Q6H PRN PRN Reason: Pain Last Admin: 05/28/17 07:50 Dose: 800 mg Witch Olga (Tucks) 1 pad TOP ASDIRECTED PRN PRN Reason: comfort care Discontinued Medications Acetaminophen (Tylenol Extra Strength) 1,000 mg PO ONETIME ONE Stop: 05/27/17 01:10 Last Admin: 05/27/17 01:40 Dose: 1,000 mg Butorphanol Tartrate (Stadol) 1 mg IVPUSH ONETIME ONE Stop: 05/26/17 16:34 Last Admin: 05/26/17 16:52 Dose: 1 mg Butorphanol Tartrate (Stadol) 1 mg IVPUSH Q1H PRN PRN Reason: Pain Last Admin: 05/27/17 00:40 Dose: 1 mg Carboprost Tromethamine (Hemabate Ds) 250 mcg IM ASDIRECTED PRN PRN Reason: Post Hemorrhage Fentanyl (Sublimaze) Confirm Administered Dose 300 mcg .ROUTE .STK-MED ONE Stop: 05/27/17 02:01 Ampicillin Sodium 2 gm/ Sodium (Chloride) 100 mls @ 200 mls/hr IV ONETIME ONE Stop: 05/26/17 17:29 Last Admin: 05/26/17 16:57 Dose: 200 mls/hr Ampicillin Sodium 1 gm/ Sodium (Chloride) 50 mls @ 100 mls/hr IV Q4H [facility] Last Admin: 05/27/17 05:34 Dose: 100 mls/hr Lactated Ringer's (Ringers, Lactated) 1,000 mls @ 999 mls/hr IV ONETIME ONE Stop: 05/26/17 17:37 Last Admin: 05/27/17 01:44 Dose: 999 mls/hr Lactated Ringer's (Ringers, Lactated) 1,000 mls @ 150 mls/hr IV ASDIRECTED [facility] Last Admin: 05/27/17 02:32 Dose: 150 mls/hr Oxytocin/Sodium Chloride (Oxytocin 30 Unit/500 Ml-Ns) 30 unit in 500 mls @ 999 mls/hr IV TITRATE [facility] Oxytocin/Sodium Chloride (Oxytocin 30 Unit/500 Ml-Ns) 30 unit in 500 mls @ 2 mls/hr IV TITRATE [facility]; 2 MUNITS/MIN PRN Reason: Protocol Last Titration: 05/27/17 07:15 Dose: 250 mls/hr Clindamycin Phosphate 600 mg/ (Sodium Chloride) 54 mls @ 100 mls/hr IV ONETIME ONE Stop: 05/27/17 01:41 Last Admin: 05/27/17 04:51 Dose: Not Given Gentamicin Sulfate 120 mg/ (Sodium Chloride) 103 mls @ 194.34 mls/hr IV ONETIME ONE Stop: 05/27/17 01:40 Last Admin: 05/27/17 01:43 Dose: 194.34 mls/hr Clindamycin Phosphate (Cleocin In D5w) Confirm Administered Dose 50 mls @ as directed .ROUTE .STK-MED ONE Stop: 05/27/17 01:32 Last Admin: 05/27/17 04:50 Dose: Not Given Clindamycin Phosphate (Cleocin In D5w) 50 mls @ 200 mls/hr IV ONETIME ONE Stop: 05/27/17 01:59 Last Admin: 05/27/17 01:42 Dose: 200 mls/hr Ropivacaine (Naropin 0.2%) Confirm Administered Dose 100 mls @ as directed .ROUTE .[employer] ONE Stop: 05/27/17 02:02 Clindamycin Phosphate 600 mg/ (Sodium Chloride) 54 mls @ 100 mls/hr IV Q6H [facility] Gentamicin Sulfate 120 mg/ (Sodium Chloride) 103 mls @ 194.34 mls/hr IV Q8H [facility] Lidocaine HCl (Xylocaine 1%) 50 ml INJECT .ONCE PRN PRN Reason: Laceration repair Methylergonovine Maleate (Methergine) 0.2 mg IM ASDIRECTED PRN PRN Reason: Post Hemorrhage Misoprostol (Cytotec) 200 mcg PO .ONCE PRN PRN Reason: Post Hemorrhage Nalbuphine HCl (Nubain) 10 mg IVPUSH Q1H PRN PRN Reason: Pain (severe 7-10) Ropivacaine (Naropin 0.2%) Confirm Administered Dose 20 ml .ROUTE .[employer] ONE Stop: 05/27/17 02:02 Sodium Chloride (Saline Flush) 10 ml FLUSH ASDIRECTED PRN PRN Reason: Keep Vein Open Sodium Chloride (Saline Flush) 2.5 ml FLUSH ASDIRECTED PRN PRN Reason: Keep Vein Open Sterile Water (Sterile Water For Irrigation) 1,000 ml IRR ASDIRECTED PRN PRN Reason: delivery Last Admin: 05/27/17 07:11 Dose: 1,000 ml Terbutaline Sulfate (Brethine) 0.25 mg SUBCUT ASDIRECTED PRN PRN Reason: Tacysystole - Infant Interaction Support Person: Mother, Sister, Significant Other - Recovery Exam Fundal Tone: Firm Fundal Level: At Umbilicus Fundal Placement: Midline Lochia Amount: Scant Lochia Color: Rubra/Red Perineum Description: Intact, Minimal Bruising/Swelling Episiotomy/Laceration: None Bladder Status: Voiding Urinary Elimination: Voided - Exam General: Alert, Oriented Lungs: Normal Respiratory Effort Cardiovascular: Regular Rate, Regular Rhythm GI/Abdominal Exam: Soft, No Distention Extremities: No: Danilo's Sign Skin: Warm, Dry, Intact Psy/Mental Status: Alert, Normal Affect - Problem List & Annotations (1) Vaginal delivery SNOMED Code(s): 798086102 Code(s): O80 - ENCOUNTER FOR FULL-TERM UNCOMPLICATED DELIVERY Status: Acute Current Visit: Yes - Problem List Review Problem List Initiated/Reviewed/Updated: Yes - Assessment Assessment:: PPD 1 status post Febrile in labor--with PPROM, receiving final doses of iv antibiotic - Plan Plan:: Patient has remained afebrile over 24 hours. Will discontinue antibiotics. White count still elevated, but improved. Patient feels well overall. Continue cares. If continues to do well, consider discharge tomorrow.
[2017-05-28] MEDS: Acetaminophen 500 MG Tab PO PRN ×2 (09:54→17:35)
[2017-05-29] MEDS: GENTAMICIN IV SCH ×6 (00:24→04:08)
[2017-05-29] MEDS: DEXTROSE 5% IV SCH ×6 (00:24→04:08)
[2017-05-29] MEDS: WATER IV SCH ×6 (00:24→04:08)
[2017-05-29] MEDS: Ampicillin 1 GM in Sodium Chloride 0.9% 50 ML IV SCH (00:24)
[2017-05-29] MEDS: Ibuprofen 800 MG Tab PO PRN (07:39)
[2017-05-29 07:43] VITALS: BP 108/59
--- NOTE | 2017-05-29 08:28 | PCM.PNPP ---
- General Info Date of Service: 05/29/17 Functional Status: Reports: Pain Controlled, Tolerating Diet, Ambulating, Urinating - Review of Systems General: Denies: Fever, Weakness, Fatigue Pulmonary: Denies: Shortness of Breath, Pleuritic Chest Pain, Cough Cardiovascular: Denies: Chest Pain, Palpitations, Dyspnea on Exertion Gastrointestinal: Denies: Abdominal Pain Genitourinary: Denies: Dysuria - General Info Date of Service: 05/29/17 - Patient Data Vital Signs - Most Recent: Last Vital Signs Temp 36.6 C 05/29/17 07:41 Pulse 82 05/29/17 07:41 Resp 14 05/29/17 07:41 BP 108/59 L 05/29/17 07:41 Pulse Ox 98 05/29/17 07:41 Weight - Most Recent: 62.142 kg Med Orders - Current: Current Medications Acetaminophen (Tylenol Extra Strength) 500 mg PO Q4H PRN PRN Reason: Pain Acetaminophen (Tylenol Extra Strength) 1,000 mg PO Q4H PRN PRN Reason: Pain Last Admin: 05/28/17 17:35 Dose: 1,000 mg Benzocaine/Menthol (Dermoplast Pain Relief 20%-0.5% [place]) 78 gm TOP ASDIRECTED PRN PRN Reason: Perineal Comfort Measure Bisacodyl (Dulcolax) 10 mg RECTAL .ONCE PRN PRN Reason: Constipation Docusate Sodium (Colace) 100 mg PO BID PRN PRN Reason: Constipation Last Admin: 05/28/17 09:55 Dose: 100 mg Emollient Ointment (Lansinoh Hpa) 0 gm TOP ASDIRECTED PRN PRN Reason: Sore Nipples Last Admin: 05/28/17 17:35 Dose: 7 gm Gentamicin Sulfate 120 mg/ (Dextrose/Water) 53 mls @ 106 mls/hr IV Q8H [facility] Last Admin: 05/29/17 04:08 Dose: Not Given Ibuprofen (Motrin) 400 mg PO Q4H PRN PRN Reason: Pain Ibuprofen (Motrin) 800 mg PO Q6H PRN PRN Reason: Pain Last Admin: 05/29/17 07:39 Dose: 800 mg Witch Olga (Tucks) 1 pad TOP ASDIRECTED PRN PRN Reason: comfort care Discontinued Medications Acetaminophen (Tylenol Extra Strength) 1,000 mg PO ONETIME ONE Stop: 05/27/17 01:10 Last Admin: 05/27/17 01:40 Dose: 1,000 mg Butorphanol Tartrate (Stadol) 1 mg IVPUSH ONETIME ONE Stop: 05/26/17 16:34 Last Admin: 05/26/17 16:52 Dose: 1 mg Butorphanol Tartrate (Stadol) 1 mg IVPUSH Q1H PRN PRN Reason: Pain Last Admin: 05/27/17 00:40 Dose: 1 mg Carboprost Tromethamine (Hemabate Ds) 250 mcg IM ASDIRECTED PRN PRN Reason: Post Hemorrhage Fentanyl (Sublimaze) Confirm Administered Dose 300 mcg .ROUTE .STK-MED ONE Stop: 05/27/17 02:01 Ampicillin Sodium 2 gm/ Sodium (Chloride) 100 mls @ 200 mls/hr IV ONETIME ONE Stop: 05/26/17 17:29 Last Admin: 05/26/17 16:57 Dose: 200 mls/hr Ampicillin Sodium 1 gm/ Sodium (Chloride) 50 mls @ 100 mls/hr IV Q4H [facility] Last Admin: 05/27/17 05:34 Dose: 100 mls/hr Lactated Ringer's (Ringers, Lactated) 1,000 mls @ 999 mls/hr IV ONETIME ONE Stop: 05/26/17 17:37 Last Admin: 05/27/17 01:44 Dose: 999 mls/hr Lactated Ringer's (Ringers, Lactated) 1,000 mls @ 150 mls/hr IV ASDIRECTED [facility] Last Admin: 05/27/17 02:32 Dose: 150 mls/hr Oxytocin/Sodium Chloride (Oxytocin 30 Unit/500 Ml-Ns) 30 unit in 500 mls @ 999 mls/hr IV TITRATE [facility] Oxytocin/Sodium Chloride (Oxytocin 30 Unit/500 Ml-Ns) 30 unit in 500 mls @ 2 mls/hr IV TITRATE [facility]; 2 MUNITS/MIN PRN Reason: Protocol Last Titration: 05/27/17 07:15 Dose: 250 mls/hr Clindamycin Phosphate 600 mg/ (Sodium Chloride) 54 mls @ 100 mls/hr IV ONETIME ONE Stop: 05/27/17 01:41 Last Admin: 05/27/17 04:51 Dose: Not Given Gentamicin Sulfate 120 mg/ (Sodium Chloride) 103 mls @ 194.34 mls/hr IV ONETIME ONE Stop: 05/27/17 01:40 Last Admin: 05/27/17 01:43 Dose: 194.34 mls/hr Clindamycin Phosphate (Cleocin In D5w) Confirm Administered Dose 50 mls @ as directed .ROUTE .[facility] ONE Stop: 05/27/17 01:32 Last Admin: 05/27/17 04:50 Dose: Not Given Clindamycin Phosphate (Cleocin In D5w) 50 mls @ 200 mls/hr IV ONETIME ONE Stop: 05/27/17 01:59 Last Admin: 05/27/17 01:42 Dose: 200 mls/hr Ropivacaine (Naropin 0.2%) Confirm Administered Dose 100 mls @ as directed .ROUTE .[facility] ONE Stop: 05/27/17 02:02 Clindamycin Phosphate 600 mg/ (Sodium Chloride) 54 mls @ 100 mls/hr IV Q6H [facility] Gentamicin Sulfate 120 mg/ (Sodium Chloride) 103 mls @ 194.34 mls/hr IV Q8H [facility] Clindamycin Phosphate (Cleocin In D5w) 50 mls @ 200 mls/hr IV Q6H [facility] Stop: 05/28/17 10:00 Last Admin: 05/28/17 09:03 Dose: 200 mls/hr Gentamicin Sulfate 120 mg/ (Dextrose/Water) 103 mls @ 206 mls/hr IV Q8H [facility] Last Admin: 05/29/17 00:24 Dose: Not Given Ampicillin Sodium 1 gm/ Sodium (Chloride) 50 mls @ 100 mls/hr IV Q6H [facility] Stop: 05/28/17 10:00 Last Admin: 05/29/17 00:24 Dose: Not Given Lidocaine HCl (Xylocaine 1%) 50 ml INJECT .ONCE PRN PRN Reason: Laceration repair Methylergonovine Maleate (Methergine) 0.2 mg IM ASDIRECTED PRN PRN Reason: Post Hemorrhage Misoprostol (Cytotec) 200 mcg PO .ONCE PRN PRN Reason: Post Hemorrhage Nalbuphine HCl (Nubain) 10 mg IVPUSH Q1H PRN PRN Reason: Pain (severe 7-10) Ropivacaine (Naropin 0.2%) Confirm Administered Dose 20 ml .ROUTE .[email or web address] ONE Stop: 05/27/17 02:02 Sodium Chloride (Saline Flush) 10 ml FLUSH ASDIRECTED PRN PRN Reason: Keep Vein Open Sodium Chloride (Saline Flush) 2.5 ml FLUSH ASDIRECTED PRN PRN Reason: Keep Vein Open Sterile Water (Sterile Water For Irrigation) 1,000 ml IRR ASDIRECTED PRN PRN Reason: delivery Last Admin: 05/27/17 07:11 Dose: 1,000 ml Terbutaline Sulfate (Brethine) 0.25 mg SUBCUT ASDIRECTED PRN PRN Reason: Tacysystole - Interaction Disposition, : in Room with Family Infant Interaction: Holding Infant Infant Feeding: Breastfed ; Nursed Well Support Person: Mother, Sister, Significant Other - Recovery Exam Fundal Tone: Firm Fundal Level: 1 Fingerbreadths Below Umbilicus Fundal Placement: Midline Lochia Amount: Small Lochia Color: Rubra/Red Perineum Description: Intact, Minimal Bruising/Swelling Episiotomy/Laceration: Approximated Bladder Status: Voiding Urinary Elimination: Voided - Exam General: Alert, Oriented Neck: Supple Lungs: Clear to Auscultation, Normal Respiratory Effort Cardiovascular: Regular Rate, Regular Rhythm Extremities: Normal Inspection, Normal Range of Motion, Normal Capillary Refill , Pedal Edema (trace) Skin: Warm, Dry, Intact - Problem List & Annotations (1) Vaginal delivery SNOMED Code(s): 676005869 Code(s): O80 - ENCOUNTER FOR FULL-TERM UNCOMPLICATED DELIVERY Status: Acute Current Visit: Yes - Problem List Review Problem List Initiated/Reviewed/Updated: Yes - Assessment Assessment:: PPD 2 status post . Remains afebrile, Vital signs WNL. Breast feeding well. Discharge home today. - Plan Plan:: Discharge home today. Nothing in the vagina for 6 weeks. Continue PNV while breast feeding. Can use OTC ibuprofen/tylenol as needed for pain. Instructed patient to call if she develops fever greater than 101 or bleeding through a large pad an hour. F/U with [facility] in 6 weeks..
== END 2017-05-29 11:30 | disposition home or self-care (01) | DRG 774 ==
LOC: MW.OBCHECK 15:33 → MW.OB 15:35 → MW.OBCHECK 18:00 → MW.OB 18:00 → OBSVTOIN 05-27 07:03 → MW.OB 05-27 13:54
PROVIDERS: ADMIT Obstetrics & Gynecology; ATTEND Obstetrics & Gynecology
PROC: 10E0XZZ Delivery of Products of Conception, External Approach (ICD-10-PCS; principal; 2017-05-27)
DX: O42.113 Preterm premature rupture of membranes, onset of labor more than 24 hours following rupture, third trimester (principal); O75.2 Pyrexia during labor, not elsewhere classified; O41.1230 Chorioamnionitis, third trimester, not applicable or unspecified; O99.824 Streptococcus B carrier state complicating childbirth; Z3A.35 35 weeks gestation of pregnancy; Z37.0 Single live birth
CPT/HCPCS: 36415; 51702; 59025; 59409; 84112; 85025; 86850; 86900; 86901; 87081; 88307; A9270-GY; J0290; J0595; J1580; J2590; J2795; J3010; J7030; J7050; J7060; J7120

== ENCOUNTER 2024-04-24 15:53 | Emergency (ER) | payer BC, OTHER ==
[2024-04-24 16:05] VITALS: BP 127/67; PULSE 118
[2024-04-24] MEDS: Ondansetron 4 MG Tab.DIS PO STA (16:52)
[2024-04-24] MEDS: oxyCODONE 5 MG Tab PO STA (16:52)
[2024-04-24] MEDS: Lidocaine/Epineph/Tetracaine 3 ML Syringe TOP STA (16:52)
[2024-04-24] MEDS: Cephalexin 500 MG Cap PO STA (18:24)
== END 2024-04-24 18:27 | disposition home or self-care (01) ==
LOC: MW.ED 15:53
DX: N75.1 Abscess of Bartholin's gland (principal); Z79.899 Other long term (current) drug therapy; Z75.8 Other problems related to medical facilities and other health care
CPT/HCPCS: 56420; 99283; A9270